=== PATIENT | female | born 1940 | race Caucasian/White ===

== ENCOUNTER 2018-03-09 14:00 | Emergency (ER) | payer MEDICARE, OTHER ==
[~2018-03-09] VITALS: Ht 157.5 cm; Wt 85.0 kg
[~2018-03-09 14:00] MED LIST: ARIC5TAB OR; ASPI81 PO; ATEN-100 PO; COZA100T PO; DIAZ10TA PO; DILT180C56 PO; FLON0.053; FLUO0.012 OT; FURO40TA OR; HYDR-2768 PO; LORT5TAB PO; POTA-243 PO; PRIL20TA2 PO; RITA20TA PO; SUMA50TA2 OR; TIZA4CAP PO; TRAM50 PO; VALA500 PO; VENTAER INH; XANA1TAB6 PO
--- NOTE | 2018-03-09 14:41 | PD ---
HPI Chief Complaint: Jacobo act Time Seen by Provider: 14:38 Travel History International Travel<30 days: No Contact w/Intl Traveler<30days: No Traveled to known affect area: No History of Present Illness HPI 77-year-old female patient went to her pain management nurse for pain related issues. Apparently she was told that she would not get any opiates which made the patient upset and states she cannot live with this pain like this anymore and would rather . Based on this patient was Jacobo acted. She was brought in by EMS. Currently patient is denying any real suicidal thoughts. Vital signs are stable. Patient denies drinking alcohol or using drugs. Her chronic pain is lower back. No new injuries. PFSH Past Medical History Narrative Medical List of her past medical, surgical, social and family history is reviewed from the nursing note. Arthritis: Yes (HX OA ) Asthma: No Blood Disorders: No Anxiety: Yes Depression: Yes Heart Rhythm Problems: Yes Cancer: Yes (BCC,) Cardiovascular Problems: Yes (COPD/ASTHMA) COPD: No Diabetes: No Diminished Hearing: No Endocrine: No Gastrointestinal Disorders: Yes (REFLUX) Glaucoma: No Genitourinary: No Hepatitis: No Hiatal Hernia: No Hypertension: Yes Immune Disorder: Yes (SARCOIDOSIS) Implanted Vascular Access Dvce: No Musculoskeletal: Yes (ARTHRITIS,BACK PROBLEMS) Neurologic: Yes (FALLS) Psychiatric: Yes Reproductive: No Respiratory: Yes (SOB) Immunizations Current: No Migraines: Yes Sleep Apnea: No Thyroid Disease: No : 2 Para: 2 Past Surgical History Abdominal Surgery: Yes (FIDELINA, TUMMY TUCK WHICH BECAME INFECTED) Body Medical Devices: SCREW IN RIGHT POINTER FINGER Cardiac Surgery: No Ear Surgery: No Endocrine Surgery: No Eye Surgery: Yes (CATARACT SX BILAT) Genitourinary Surgery: No Gynecologic Surgery: Yes (HYSTERECTOMY PARTIAL) Hysterectomy: Yes Joint Replacement: No Neurologic Surgery: No Oral Surgery: No Pacemaker: No Thoracic Surgery: Yes ("SCRAPED LUNG FOR SARCODOSIS") Tonsillectomy: Yes Other Surgery: Yes (07/24 TUMMY TUCK IN [facility], [place]PA[place] [facility] [place] Social History Alcohol Use: No Tobacco Use: No Substance Use: No Allergies-Medications (Allergen,Severity, Reaction): Coded Allergies: fexofenadine (Unverified Allergy, Severe, LIP SWELLING, 03/11/18) Comments List of her allergies reviewed from the nursing note. Reported Meds & Prescriptions Reported Meds & Active Scripts Active Walker with Front Wheels (Device) 1 Mis Mis Ea .XX DIRECTED Reported Omeprazole 20 Mg Tab 20 Mg PO DAILY Prednisone 2.5 Mg Tab 2.5 Mg PO DAILY Ritalin IR (Methylphenidate HCl) 20 Mg Tab 20 Mg PO DAILY Cardizem CD 24 HR (Diltiazem CD 24 HR) 240 Mg Caper 240 Mg PO DAILY Ventolin Hfa 18 GM Inh (Albuterol Sulfate) 90 Mcg/Act Aer 2 Puff INH Q4-6H PRN Narrative Medication List of her home medications reviewed from the nursing note. Review of Systems Except as stated in HPI: all other systems reviewed are Neg Physical Exam Narrative GENERAL: Awake, alert, anxious, no obvious distress SKIN: Focused skin assessment warm/dry. HEAD: Atraumatic. Normocephalic. EYES: Pupils equal and round. No scleral icterus. No injection or drainage. ENT: No nasal bleeding or discharge. Mucous membranes pink and moist. NECK: Trachea midline. No JVD. CARDIOVASCULAR: Regular rate and rhythm. No murmur appreciated. RESPIRATORY: No accessory muscle use. Clear to auscultation. Breath sounds equal bilaterally. GASTROINTESTINAL: Abdomen soft, non-tender, nondistended. Hepatic and splenic margins not palpable. MUSCULOSKELETAL: No obvious deformities. No clubbing. No cyanosis. No edema. NEUROLOGICAL: Awake and alert. No obvious cranial nerve deficits. Motor grossly within normal limits. Normal speech. PSYCHIATRIC: Appropriate mood and affect; insight and judgment normal. Data Data Last Documented VS Vital Signs Date Time Temp Pulse Resp B/P (MAP) Pulse Ox O2 Delivery O2 Flow Rate FiO2 03/10/18 10:08 Orders Orders Complete Blood Count With Diff (03/09/18 14:48) Comprehensive Metabolic Panel (03/09/18 14:48) Thyroid Stimulating Hormone (03/09/18 14:48) Psych Screen (03/09/18 14:48) Drug Screen, Random Urine (03/09/18 14:48) Prothrombin Time / Inr (Pt) (03/09/18 15:12) Urinalysis - C+S If Indicated (03/09/18 15:51) Diet Regular Basic (03/09/18 Dinner) Acetaminophen (Tylenol) (03/09/18 19:15) Tramadol (Ultram) (03/09/18 21:45) Diphenhydramine (Benadryl) (03/09/18 21:45) Diet Regular Basic (03/10/18 Breakfast) Ed Discharge Order (03/10/18 09:50) Labs Laboratory Tests Test 03/09/18 14:00 03/09/18 15:09 03/09/18 15:14 Urine Color YELLOW Urine Turbidity CLEAR Urine pH 6.5 Urine Specific [place] 1.015 Urine Protein TRACE mg/dL Urine Glucose (UA) NEG mg/dL Urine Ketones NEG mg/dL Urine Occult Blood NEG Urine Nitrite NEG Urine Bilirubin NEG Urine Urobilinogen 0.2 MG/DL Urine Leukocyte Esterase NEG Urine RBC LESS THAN 1 /hpf Urine WBC LESS THAN 1 /hpf Urine Squamous Epithelial Cells 4 /hpf Urine Hyaline Casts 2 /lpf Urine Mucus FEW /lpf Microscopic Urinalysis Comment CULT NOT INDICATED Urine Opiates Screen NEG Urine Barbiturates Screen NEG Urine Amphetamines Screen NEG Urine Benzodiazepines Screen POS Urine Cocaine Screen NEG Urine Cannabinoids Screen NEG White Blood Count 7.9 TH/MM3 Red Blood Count 4.23 MIL/MM3 Hemoglobin 10.2 GM/DL Hematocrit 32.3 % Mean Corpuscular Volume 76.5 FL Mean Corpuscular Hemoglobin 24.0 PG Mean Corpuscular Hemoglobin Concent 31.4 % Red Cell Distribution Width 17.5 % Platelet Count 421 TH/MM3 Mean Platelet Volume 7.8 FL Neutrophils (%) (Auto) 53.6 % Lymphocytes (%) (Auto) 31.5 % Monocytes (%) (Auto) 9.5 % Eosinophils (%) (Auto) 4.4 % Basophils (%) (Auto) 1.0 % Neutrophils # (Auto) 4.2 TH/MM3 Lymphocytes # (Auto) 2.5 TH/MM3 Monocytes # (Auto) 0.7 TH/MM3 Eosinophils # (Auto) 0.3 TH/MM3 Basophils # (Auto) 0.1 TH/MM3 CBC Comment DIFF FINAL Differential Comment Blood Urea Nitrogen 13 MG/DL Creatinine 0.99 MG/DL Random Glucose 106 MG/DL Total Protein 7.0 GM/DL Albumin 3.3 GM/DL Calcium Level 8.9 MG/DL Alkaline Phosphatase 125 U/L Aspartate Amino Transf (AST/SGOT) 17 U/L Alanine Aminotransferase (ALT/SGPT) 18 U/L Total Bilirubin 0.4 MG/DL Sodium Level 140 MEQ/L Potassium Level 3.6 MEQ/L Chloride Level 102 MEQ/L Carbon Dioxide Level 29.6 MEQ/L Anion Gap 8 MEQ/L Estimat Glomerular Filtration Rate 54 ML/MIN Thyroid Stimulating Hormone 3rd Gen 1.150 uIU/ML Prothrombin Time 14.3 SEC Prothromb Time International Ratio 1.4 RATIO MDM Medical Decision Making Medical Screen Exam Complete: Yes Emergency Medical Condition: Yes Medical Record Reviewed: Yes Differential Diagnosis Anxiety, depression, anger outburst Narrative Course 4:31 PM blood test results are back and patient is medically cleared. Awaiting for psych screen Procedures EKG Prior to Arrival: Barry Vilchis MD March 09, 2018 14:41
[2018-03-09 14:43] VITALS: BP 193/87; PULSE 78; RESP 14; TEMP 99; O2SAT 97
[2018-03-09 15:41] LABS: AUTOMATED NEUTROPHIL # 4.2 TH/MM3 (1.8-7.7); BASOPHIL # 0.1 TH/MM3 (0-0.2); EOSINOPHIL # 0.3 TH/MM3 (0-0.4); EOSINOPHIL % 4.4 % (0.0-4.0); HEMATOCRIT 32.3 % (35.0-46.0); HEMOGLOBIN 10.2 GM/DL (11.6-15.3); LYMPH % 31.5 % (9.0-44.0); LYMPHOCYTE # 2.5 TH/MM3 (1.0-4.8); MEAN CELL VOLUME 76.5 FL (80.0-100.0); MEAN CORPUSCULAR HGB CONC 31.4 % (32.0-36.0); MEAN PLATELET VOLUME 7.8 FL (7.0-11.0); MONO % 9.5 % (0.0-8.0); MONOCYTE # 0.7 TH/MM3 (0-0.9); NEUT % 53.6 % (16.0-70.0); PLATELET COUNT 421 TH/MM3 (150-450); RED BLOOD COUNT 4.23 MIL/MM3 (4.00-5.30); RED CELL DISTRIBUTION WIDTH 17.5 % (11.6-17.2); WHITE BLOOD COUNT 7.9 TH/MM3 (4.0-11.0)
[2018-03-09 15:47] LABS: ALBUMIN 3.3 GM/DL (3.4-5.0); ALT (GPT) 18 U/L (10-53); AST (GOT) 17 U/L (15-37); BICARBONATE 29.6 MEQ/L (21.0-32.0); BLOOD UREA NITROGEN 13 MG/DL (7-18); CALCIUM 8.9 MG/DL (8.5-10.1); CHLORIDE 102 MEQ/L (98-107); CREATININE 0.99 MG/DL (0.50-1.00); GLOMERULAR FILTRATION RATE 54 ML/MIN (>89); GLUCOSE,RANDOM 106 MG/DL (74-106); SODIUM (NA) 140 MEQ/L (136-145)
[2018-03-09 15:57] LABS: ALKALINE PHOSPHATASE 125 U/L (45-117); TOTAL BILIRUBIN ADULT 0.4 MG/DL (0.2-1.0)
[2018-03-09 16:18] LABS: INTERNATIONAL NORMALIZED RATIO 1.4 RATIO; PROTHROMBIN TIME - PATIENT 14.3 SEC (9.8-11.6)
[2018-03-09 16:22] LABS: BILIRUBIN, URINE NEG (NEG); BLOOD, URINE NEG (NEG); GLUCOSE,URINE NEG (NEG); KETONE, URINE NEG (NEG); NITRITE,URINE NEG (NEG); PH, URINE 6.5 (5.0-8.5); URINE COLOR YELLOW (YELLW/STRAW); URINE LEUKOCYTE ESTERASE NEG (NEG)
[2018-03-09 16:23] LABS: HYALINE CAST, URINE 2 /lpf (RARE); MUCUS URINE FEW /lpf (OCC); SQUAMOUS EPITHELIAL CELL URINE 4 /hpf (0-5)
[2018-03-09] MEDS ORDERED: VENTAER INH ×2 (17:16→20:52)
[2018-03-09] MEDS ORDERED: TRAM50TA PO (17:16)
[2018-03-09] MEDS ORDERED: LACT10SO PO (17:16)
[2018-03-09] MEDS ORDERED: ACETAMINOPHEN 325 MG TAB PO ONE (19:15)
[2018-03-09] MEDS ORDERED: PRED2.5T PO (20:55)
[2018-03-09] MEDS ORDERED: RITA20TA PO (20:55)
[2018-03-09] MEDS ORDERED: FURO1TAB60 PO (20:55)
[2018-03-09] MEDS ORDERED: CARD240C6 PO (20:55)
[2018-03-09] MEDS ORDERED: AMBI10TA PO (20:55)
[2018-03-09] MEDS ORDERED: POTA1TAB4 PO (20:58)
[2018-03-09] MEDS ORDERED: OMEP20TA93 PO (20:58)
[2018-03-09] MEDS ORDERED: diphenhydrAMINE HCL 50 MG CAP PO ONE (21:45)
[2018-03-09] MEDS ORDERED: traMADol HCL 50 MG TAB PO ONE (21:45)
[2018-03-09 22:13] VITALS: BP 193/88; PULSE 94; RESP 20; TEMP 98.1; O2SAT 99
[2018-03-10 04:49] VITALS: BP 154/70; PULSE 91; RESP 18; O2SAT 96
--- NOTE | 2018-03-10 09:47 | PD ---
Physical Exam Date Seen by Provider: March 10, 2018 Time Seen by Provider: 09:46 Narrative 77-year-old female patient previously medically clear for psychiatric evaluation for suicidal ideation, has been seen and evaluated by psychiatric staff and deemed psychiatrically stable for discharge at this time. Patient remains medically stable for discharge. Follow-up will be based on psychiatric note. Data Data Last Documented VS Vital Signs Date Time Temp Pulse Resp B/P (MAP) Pulse Ox O2 Delivery O2 Flow Rate FiO2 03/10/18 04:49 91 18 154/70 (98) 96 Room Air 03/09/18 22:13 98.1 Orders Orders Complete Blood Count With Diff (03/09/18 14:48) Comprehensive Metabolic Panel (03/09/18 14:48) Thyroid Stimulating Hormone (03/09/18 14:48) Psych Screen (03/09/18 14:48) Drug Screen, Random Urine (03/09/18 14:48) Prothrombin Time / Inr (Pt) (03/09/18 15:12) Urinalysis - C+S If Indicated (03/09/18 15:51) Diet Regular Basic (03/09/18 Dinner) Acetaminophen (Tylenol) (03/09/18 19:15) Tramadol (Ultram) (03/09/18 21:45) Diphenhydramine (Benadryl) (03/09/18 21:45) Diet Regular Basic (03/10/18 Breakfast) Labs Laboratory Tests Test 03/09/18 14:00 03/09/18 15:09 03/09/18 15:14 Urine Color YELLOW Urine Turbidity CLEAR Urine pH 6.5 Urine Specific [place] 1.015 Urine Protein TRACE mg/dL Urine Glucose (UA) NEG mg/dL Urine Ketones NEG mg/dL Urine Occult Blood NEG Urine Nitrite NEG Urine Bilirubin NEG Urine Urobilinogen 0.2 MG/DL Urine Leukocyte Esterase NEG Urine RBC LESS THAN 1 /hpf Urine WBC LESS THAN 1 /hpf Urine Squamous Epithelial Cells 4 /hpf Urine Hyaline Casts 2 /lpf Urine Mucus FEW /lpf Microscopic Urinalysis Comment CULT NOT INDICATED Urine Opiates Screen NEG Urine Barbiturates Screen NEG Urine Amphetamines Screen NEG Urine Benzodiazepines Screen POS Urine Cocaine Screen NEG Urine Cannabinoids Screen NEG White Blood Count 7.9 TH/MM3 Red Blood Count 4.23 MIL/MM3 Hemoglobin 10.2 GM/DL Hematocrit 32.3 % Mean Corpuscular Volume 76.5 FL Mean Corpuscular Hemoglobin 24.0 PG Mean Corpuscular Hemoglobin Concent 31.4 % Red Cell Distribution Width 17.5 % Platelet Count 421 TH/MM3 Mean Platelet Volume 7.8 FL Neutrophils (%) (Auto) 53.6 % Lymphocytes (%) (Auto) 31.5 % Monocytes (%) (Auto) 9.5 % Eosinophils (%) (Auto) 4.4 % Basophils (%) (Auto) 1.0 % Neutrophils # (Auto) 4.2 TH/MM3 Lymphocytes # (Auto) 2.5 TH/MM3 Monocytes # (Auto) 0.7 TH/MM3 Eosinophils # (Auto) 0.3 TH/MM3 Basophils # (Auto) 0.1 TH/MM3 CBC Comment DIFF FINAL Differential Comment Blood Urea Nitrogen 13 MG/DL Creatinine 0.99 MG/DL Random Glucose 106 MG/DL Total Protein 7.0 GM/DL Albumin 3.3 GM/DL Calcium Level 8.9 MG/DL Alkaline Phosphatase 125 U/L Aspartate Amino Transf (AST/SGOT) 17 U/L Alanine Aminotransferase (ALT/SGPT) 18 U/L Total Bilirubin 0.4 MG/DL Sodium Level 140 MEQ/L Potassium Level 3.6 MEQ/L Chloride Level 102 MEQ/L Carbon Dioxide Level 29.6 MEQ/L Anion Gap 8 MEQ/L Estimat Glomerular Filtration Rate 54 ML/MIN Thyroid Stimulating Hormone 3rd Gen 1.150 uIU/ML Prothrombin Time 14.3 SEC Prothromb Time International Ratio 1.4 RATIO [facility] Medical Record Reviewed: Yes Supervised Visit with CARLEY: Yes Differential Diagnosis 77-year-old female patient previously medically clear for psychiatric evaluation for suicidal ideation, has been seen and evaluated by psychiatric staff and deemed psychiatrically stable for discharge at this time. Patient remains medically stable for discharge. Follow-up will be based on psychiatric note. Diagnosis Primary Impression: Adjustment disorder with depressed mood Patient Instructions: General Instructions Departure Forms: Tests/Procedures Disposition: DISCHARGE HOME Condition: Stable Ochoa Damon March 10, 2018 09:47
--- NOTE | 2018-03-10 12:34 | PD.PSY.CON ---
Provisional Diagnosis Admission Date [place] I. Adjustment disorder with depressed mood, history of depression and anxiety [place] II. Deferred [place] III. 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 Apparently she was told that she would not get any opiates which made the patient upset and states she cannot live with this pain like this anymore and would rather . Based on this patient was Jacobo acted. She was brought in by EMS. On psychiatric evaluation today the patient denies symptomatology of depression. She said that she never expressed suicidal ideation. She said that she was on pain and in the context of pain she said that she wanted to , but not to kill herself. She now is denies pain, denies distress, denies suicidal and was ideation, denies visual and auditory hallucinations. She is oriented 3. Past Family Social History Coded Allergies: fexofenadine (Unverified Allergy, Severe, LIP SWELLING, 03/11/18) Reported Medications Potassium Chloride ER (K-Tab) 20 Meq Tab, 20 MEQ PO DAILY for Electrolyte Replacement, #30 TAB 0 Refills 03/09/18 Omeprazole (Omeprazole) 20 Mg Tab, 20 MG PO DAILY, #30 TAB 0 Refills 03/09/18 Prednisone (Prednisone) 2.5 Mg Tab, 2.5 MG PO DAILY, TAB 0 Refills 03/09/18 Methylphenidate IR (Ritalin IR) 20 Mg Tab, 20 MG PO DAILY, #30 TAB 0 Refills 03/09/18 Furosemide (Lasix) 40 Mg Tab, 40 MG PO DAILY, #30 TAB 0 Refills 03/09/18 Diltiazem CD 24 HR (Cardizem CD 24 HR) 240 Mg Caper, 240 MG PO DAILY, #30 CAP 0 Refills 03/09/18 Zolpidem (Ambien) 10 Mg Tab, 10 MG PO HS Y for INSOMNIA, TAB 0 Refills 03/09/18 Lactulose Liq (Lactulose Liq) 10 Gm/15 Ml Soln, 30 ML PO Q6H, ML 0 Refills 03/09/18 Albuterol 18 GM Inh (Ventolin Hfa 18 GM Inh) 90 Mcg/Act Aer, 2 PUFF INH Q4-6H Y for SHORTNESS OF BREATH, #1 INHALER 0 Refills 03/09/18 Tramadol (Tramadol) 50 Mg Tab, 50-100 MG PO TID Y for PAIN, TAB 0 Refills 03/09/18 Discontinued Reported Medications Albuterol Sulfate (Ventolin Hfa) 18 Gm Aero, 2 PUFF INH Q4HPRN, #1 * SHAKE WELL BEFORE USE * 03/09/18 Family Psych History No family psychiatric he Social History Patient was born and raised in [place], she lives in [place] by herself, 2 kids, , unemployed, supported by Social Security Physical Exam Vital Signs Vital Signs Date Time Temp Pulse Resp B/P (MAP) Pulse Ox O2 Delivery O2 Flow Rate FiO2 03/10/18 10:08 03/10/18 04:49 91 18 96 Room Air 03/09/18 22:13 98.1 Lab Results Test 03/09/18 14:00 03/09/18 15:09 03/09/18 15:14 Urine Color YELLOW Urine Turbidity CLEAR Urine pH 6.5 Urine Specific [place] 1.015 Urine Protein TRACE mg/dL Urine Glucose (UA) NEG mg/dL Urine Ketones NEG mg/dL Urine Occult Blood NEG Urine Nitrite NEG Urine Bilirubin NEG Urine Urobilinogen 0.2 MG/DL Urine Leukocyte Esterase NEG Urine RBC LESS THAN 1 /hpf Urine WBC LESS THAN 1 /hpf Urine Squamous Epithelial Cells 4 /hpf Urine Hyaline Casts 2 /lpf Urine Mucus FEW /lpf Microscopic Urinalysis Comment CULT NOT INDICATED Urine Opiates Screen NEG Urine Barbiturates Screen NEG Urine Amphetamines Screen NEG Urine Benzodiazepines Screen POS Urine Cocaine Screen NEG Urine Cannabinoids Screen NEG White Blood Count 7.9 TH/MM3 Red Blood Count 4.23 MIL/MM3 Hemoglobin 10.2 GM/DL Hematocrit 32.3 % Mean Corpuscular Volume 76.5 FL Mean Corpuscular Hemoglobin 24.0 PG Mean Corpuscular Hemoglobin Concent 31.4 % Red Cell Distribution Width 17.5 % Platelet Count 421 TH/MM3 Mean Platelet Volume 7.8 FL Neutrophils (%) (Auto) 53.6 % Lymphocytes (%) (Auto) 31.5 % Monocytes (%) (Auto) 9.5 % Eosinophils (%) (Auto) 4.4 % Basophils (%) (Auto) 1.0 % Neutrophils # (Auto) 4.2 TH/MM3 Lymphocytes # (Auto) 2.5 TH/MM3 Monocytes # (Auto) 0.7 TH/MM3 Eosinophils # (Auto) 0.3 TH/MM3 Basophils # (Auto) 0.1 TH/MM3 CBC Comment DIFF FINAL Differential Comment Blood Urea Nitrogen 13 MG/DL Creatinine 0.99 MG/DL Random Glucose 106 MG/DL Total Protein 7.0 GM/DL Albumin 3.3 GM/DL Calcium Level 8.9 MG/DL Alkaline Phosphatase 125 U/L Aspartate Amino Transf (AST/SGOT) 17 U/L Alanine Aminotransferase (ALT/SGPT) 18 U/L Total Bilirubin 0.4 MG/DL Sodium Level 140 MEQ/L Potassium Level 3.6 MEQ/L Chloride Level 102 MEQ/L Carbon Dioxide Level 29.6 MEQ/L Anion Gap 8 MEQ/L Estimat Glomerular Filtration Rate 54 ML/MIN Thyroid Stimulating Hormone 3rd Gen 1.150 uIU/ML Prothrombin Time 14.3 SEC Prothromb Time International Ratio 1.4 RATIO Mental Status Examination Appearance: Appropriate Consciousness: Alert Orientation: x4 Motor Activity: Normal gait Speech: Unremarkable Language: Adequate Fund of Knowledge: Adequate Attention and Concentration: Adequate Memory: Unremarkable Mood: Appropriate Affect: Appropriate Thought Process & Associations: Intact Thought Content: Appropriate Hallucination Type: None Delusion Type: None Suicidal Ideation: No Suicidal Plan: No Suicidal Intention: No Homicidal Ideation: No Homicidal Plan: No Homicidal Intention: No Insight: Adequate Judgment: Adequate Assessment & Plan Problem List: (1) Adjustment disorder with depressed mood ICD Codes: F43.21 - Adjustment disorder with depressed mood Assessment & Plan: The patient does not meet criteria for involuntary psychiatric admission at this moment. Patient denies symptoms of depression, anxiety, anastacia or psychosis. No SI, no HI. Assessment & Plan Estimated LOS: Grabiel Enriquez MD March 10, 2018 12:34
== END 2018-03-10 10:15 | disposition home or self-care (01) ==
LOC: NEPD 14:00 → NEPJ 03-10 10:15
DX: F43.21 Adjustment disorder with depressed mood (principal); M54.5 Low back pain; G89.29 Other chronic pain; K21.9 Gastro-esophageal reflux disease without esophagitis; J44.9 Chronic obstructive pulmonary disease, unspecified; Z79.899 Other long term (current) drug therapy
CPT/HCPCS: 80053; 80307; 81001; 84443; 85025; 85610; 99284; Q0163

== ENCOUNTER 2018-03-11 11:53 | Observation (INO) | payer MEDICARE, OTHER ==
[~2018-03-11] VITALS: Ht 157.5 cm; Wt 82.0 kg
[~2018-03-11 11:53] MED LIST changes: +AMBI10TA PO; -ARIC5TAB OR; -ASPI81 PO; -ATEN-100 PO; +CARD240C6 PO; -COZA100T PO; -DIAZ10TA PO; -DILT180C56 PO; -FLON0.053; -FLUO0.012 OT; +FURO1TAB60 PO; -FURO40TA OR; -HYDR-2768 PO; +LACT10SO PO; -LORT5TAB PO; +OMEP20TA93 PO; -POTA-243 PO; +POTA1TAB4 PO; +PRED2.5T PO; -PRIL20TA2 PO; -SUMA50TA2 OR; -TIZA4CAP PO; -TRAM50 PO; +TRAM50TA PO; -VALA500 PO; -XANA1TAB6 PO
[2018-03-11 12:13] VITALS: BP 119/60; PULSE 78; RESP 15; TEMP 97.7; O2SAT 98
[2018-03-11] MEDS ORDERED: SODIUM CHLOR 0.9% 1000 ML INJ 1,000 ML IV SCH (12:45)
[2018-03-11 12:48] VITALS: O2SAT 98
--- NOTE | 2018-03-11 13:02 | PD ---
HPI Chief Complaint: Fall Time Seen by Provider: 12:20 Travel History International Travel<30 days: No Contact w/Intl Traveler<30days: No Traveled to known affect area: No History of Present Illness HPI 77-year-old female was brought in by EMS after a fall. Patient states that a dog pushed on her and she fell. Patient denies loss of consciousness. Patient denies any headache or neck pain. Patient denies any chest pain or shortness of breath. Patient denies abdominal pain. Patient denies any focal weakness or numbness of extremity. EMS was called. Initial systolic blood pressures in the 80s. Patient was given IV fluid normal saline solution and transported to ED for evaluation. Patient denies any complaint now. Patient has history of osteoarthritis, anxiety, depression, sarcoidosis, migraine headache. Patient was on diazepam and Lortab and Xanax until recently when patient is on Xanax now. PFSH Past Medical History Hx Anticoagulant Therapy: Yes (warfarin) Arthritis: Yes (HX OA ) Asthma: No Blood Disorders: No Anxiety: Yes Depression: Yes Heart Rhythm Problems: Yes Cancer: Yes (BCC,) Cardiovascular Problems: Yes (COPD/ASTHMA) COPD: No Cerebrovascular Accident: Yes Diabetes: No Diminished Hearing: No Endocrine: No Gastrointestinal Disorders: Yes (REFLUX) Glaucoma: No Genitourinary: No Hepatitis: No Hiatal Hernia: No Hypertension: Yes Immune Disorder: Yes (SARCOIDOSIS) Implanted Vascular Access Dvce: No Musculoskeletal: Yes (ARTHRITIS,BACK PROBLEMS) Neurologic: Yes (FALLS) Psychiatric: Yes Reproductive: No Respiratory: Yes (PE) Immunizations Current: No Migraines: Yes Sleep Apnea: No Thyroid Disease: No : 2 Para: 2 Past Surgical History Abdominal Surgery: Yes (FIDELINA, TUMMY TUCK WHICH BECAME INFECTED) Body Medical Devices: SCREW IN RIGHT POINTER FINGER Cardiac Surgery: No Cholecystectomy: Yes Ear Surgery: No Endocrine Surgery: No Eye Surgery: Yes (CATARACT SX BILAT) Genitourinary Surgery: Yes (bladder sling) Gynecologic Surgery: Yes (HYSTERECTOMY PARTIAL) Hysterectomy: Yes Joint Replacement: No Neurologic Surgery: No Oral Surgery: No Pacemaker: No Thoracic Surgery: Yes ("SCRAPED LUNG FOR SARCODOSIS") Tonsillectomy: Yes Other Surgery: Yes (07/24 TUMMY TUCK IN [facility], REPAIRED AT [facility] DR MALHOTRA) Social History Alcohol Use: No Tobacco Use: No Substance Use: No Allergies-Medications (Allergen,Severity, Reaction): Coded Allergies: fexofenadine (Unverified Allergy, Severe, LIP SWELLING, 03/11/18) Reported Meds & Prescriptions Reported Meds & Active Scripts Active Reported K-Tab (Potassium Chloride) 20 Meq Tab 20 Meq PO DAILY Omeprazole 20 Mg Tab 20 Mg PO DAILY Prednisone 2.5 Mg Tab 2.5 Mg PO DAILY Ritalin IR (Methylphenidate HCl) 20 Mg Tab 20 Mg PO DAILY Lasix (Furosemide) 40 Mg Tab 40 Mg PO DAILY Cardizem CD 24 HR (Diltiazem CD 24 HR) 240 Mg Caper 240 Mg PO DAILY Ambien (Zolpidem Tartrate) 10 Mg Tab 10 Mg PO HS PRN Lactulose Liq (Lactulose) 10 Gm/15 Ml Soln 30 Ml PO Q6H Ventolin Hfa 18 GM Inh (Albuterol Sulfate) 90 Mcg/Act Aer 2 Puff INH Q4-6H PRN Tramadol (Tramadol HCl) 50 Mg Tab 50-100 Mg PO TID PRN Review of Systems General / Constitutional: No: Fever Eyes: No: Visual changes HENT: No: Headaches Cardiovascular: No: Chest Pain or Discomfort Respiratory: No: Shortness of Breath Gastrointestinal: No: Abdominal Pain Genitourinary: No: Dysuria Musculoskeletal: No: Pain Skin: No Rash Neurologic: No: Weakness Psychiatric: No: Depression Endocrine: No: Polydipsia Hematologic/Lymphatic: No: Easy Bruising Physical Exam Narrative GENERAL: Well-nourished, well-developed patient. SKIN: Focused skin assessment warm/dry. HEAD: Normocephalic. EYES: No scleral icterus. No injection or drainage. Pupils pinpoint. NECK: Supple, trachea midline. No JVD or lymphadenopathy. CARDIOVASCULAR: Regular rate and rhythm without murmurs, gallops, or rubs. RESPIRATORY: Breath sounds equal bilaterally. No accessory muscle use. GASTROINTESTINAL: Abdomen soft, non-tender, nondistended. MUSCULOSKELETAL: No cyanosis, or edema. BACK: Nontender without obvious deformity. No CVA tenderness. Neurologic exam: Patient is lethargic however answer questions appropriately. Patient moves all extremity well. No obvious focal neurological deficit. Data Data Last Documented VS Vital Signs Date Time Temp Pulse Resp B/P (MAP) Pulse Ox O2 Delivery O2 Flow Rate FiO2 03/11/18 12:48 98 03/11/18 12:13 97.7 78 15 119/60 (79) Orders Orders Electrocardiogram (03/11/18 12:32) Complete Blood Count With Diff (03/11/18 12:32) Comprehensive Metabolic Panel (03/11/18 12:32) Creatine Kinase (Cpk) (03/11/18 12:32) Troponin I (03/11/18 12:32) B-Type Natriuretic Peptide (03/11/18 12:32) Prothrombin Time / Inr (Pt) (03/11/18 12:32) Act Partial Throm Time (Ptt) (03/11/18 12:32) Urinalysis - C+S If Indicated (03/11/18 12:32) Thyroid Stimulating Hormone (03/11/18 12:32) Chest, Single Ap (03/11/18 12:32) Ct Brain W/O Iv Contrast(Rout) (03/11/18 12:32) Pelvis, Ap Only (Routine) (03/11/18 12:32) Iv Access Insert/Monitor (03/11/18 12:32) Ecg Monitoring (03/11/18 12:32) Oximetry (03/11/18 12:32) Drug Screen, Random Urine (03/11/18 12:32) Alcohol (Ethanol) (03/11/18 12:32) Sodium Chlor 0.9% 1000 Ml Inj (Ns 1000 M (03/11/18 12:45) Labs Laboratory Tests Test 03/11/18 13:00 03/11/18 14:15 White Blood Count 12.5 TH/MM3 Red Blood Count 4.07 MIL/MM3 Hemoglobin 9.7 GM/DL Hematocrit 31.7 % Mean Corpuscular Volume 77.9 FL Mean Corpuscular Hemoglobin 23.9 PG Mean Corpuscular Hemoglobin Concent 30.7 % Red Cell Distribution Width 17.7 % Platelet Count 394 TH/MM3 Mean Platelet Volume 8.2 FL Neutrophils (%) (Auto) 77.8 % Lymphocytes (%) (Auto) 11.1 % Monocytes (%) (Auto) 9.7 % Eosinophils (%) (Auto) 0.8 % Basophils (%) (Auto) 0.6 % Neutrophils # (Auto) 9.8 TH/MM3 Lymphocytes # (Auto) 1.4 TH/MM3 Monocytes # (Auto) 1.2 TH/MM3 Eosinophils # (Auto) 0.1 TH/MM3 Basophils # (Auto) 0.1 TH/MM3 CBC Comment DIFF FINAL Differential Comment Prothrombin Time 15.8 SEC Prothromb Time International Ratio 1.6 RATIO Activated Partial Thromboplast Time 24.6 SEC Blood Urea Nitrogen 27 MG/DL Creatinine 2.13 MG/DL Random Glucose 104 MG/DL Total Protein 6.6 GM/DL Albumin 3.3 GM/DL Calcium Level 9.3 MG/DL Alkaline Phosphatase 115 U/L Aspartate Amino Transf (AST/SGOT) 16 U/L Alanine Aminotransferase (ALT/SGPT) 18 U/L Total Bilirubin 0.7 MG/DL Sodium Level 138 MEQ/L Potassium Level 3.9 MEQ/L Chloride Level 103 MEQ/L Carbon Dioxide Level 21.6 MEQ/L Anion Gap 13 MEQ/L Estimat Glomerular Filtration Rate 22 ML/MIN Total Creatine Kinase 53 U/L Troponin I LESS THAN 0.02 NG/ML B-Type Natriuretic Peptide 56 PG/ML Thyroid Stimulating Hormone 3rd Gen 5.270 uIU/ML Ethyl Alcohol Level LESS THAN 3 MG/DL Urine Color YELLOW Urine Turbidity HAZY Urine pH 5.5 Urine Specific [place] 1.014 Urine Protein TRACE mg/dL Urine Glucose (UA) NEG mg/dL Urine Ketones NEG mg/dL Urine Occult Blood NEG Urine Nitrite NEG Urine Bilirubin NEG Urine Urobilinogen LESS THAN 2.0 MG/DL Urine Leukocyte Esterase LARGE Urine WBC 5 /hpf Urine Squamous Epithelial Cells 7 /hpf Urine Hyaline Casts 20 /lpf Urine Mucus FEW /lpf Microscopic Urinalysis Comment CATH-CULT NOT IND Urine Opiates Screen NEG Urine Barbiturates Screen NEG Urine Amphetamines Screen NEG Urine Benzodiazepines Screen POS Urine Cocaine Screen NEG Urine Cannabinoids Screen NEG [facility] Medical Decision Making Medical Screen Exam Complete: Yes Emergency Medical Condition: Yes Interpretation(s) Last Impressions Pelvis X-Ray 03/11/18 123 Signed Impressions: CONCLUSION: No definite fracture is seen. Head CT 03/11/18 123 Signed Impressions: CONCLUSION: 1. Chronic changes with moderately severe periventricular and deep white matte r tracts small vessel ischemic demyelination. 2. Chronic sinusitis in the right sphenoid. 3. Nothing acute. Chest X-Ray 03/11/18 1232 Signed Impressions: CONCLUSION: Cardiomegaly. Suspected mild atelectasis or consolidation at the inferior right upper lobe. 1623 PM. CBC WBC 12.5. Hemoglobin 9.7 hematocrit 31.7. MCV 77.9. 77 neutrophil. BUN 27. Creatinine 2.13. Cardiac enzymes are normal. BNP 56. TSH 5.27. Urine drug screen positive for benzo. UA negative. Differential Diagnosis Differential diagnosis including vasovagal reaction, head injury, extremity injury, TIA, CVA, electrolyte abnormality, dehydration, sepsis. Narrative Course 77-year-old female with generalized weakness. Patient fell this morning. Normal saline solution 1 25 cc an hour. Diagnosis Primary Impression: Altered mental status Qualified Codes: R41.82 - Altered mental status, unspecified Additional Impressions: Dehydration Acute kidney injury Admitting Information Admitting Physician Requests: Admit Abran Castellanos MD March 11, 2018 13:02
[2018-03-11 13:19] LABS: AUTOMATED NEUTROPHIL # 9.8 TH/MM3 (1.8-7.7); BASOPHIL # 0.1 TH/MM3 (0-0.2); BASOPHIL % 0.6 % (0.0-2.0); EOSINOPHIL # 0.1 TH/MM3 (0-0.4); EOSINOPHIL % 0.8 % (0.0-4.0); HEMATOCRIT 31.7 % (35.0-46.0); HEMOGLOBIN 9.7 GM/DL (11.6-15.3); LYMPH % 11.1 % (9.0-44.0); LYMPHOCYTE # 1.4 TH/MM3 (1.0-4.8); MEAN CELL VOLUME 77.9 FL (80.0-100.0); MEAN CORPUSCULAR HEMOGLOBIN 23.9 PG (27.0-34.0); MEAN CORPUSCULAR HGB CONC 30.7 % (32.0-36.0); MEAN PLATELET VOLUME 8.2 FL (7.0-11.0); MONO % 9.7 % (0.0-8.0); MONOCYTE # 1.2 TH/MM3 (0-0.9); NEUT % 77.8 % (16.0-70.0); PLATELET COUNT 394 TH/MM3 (150-450); RED BLOOD COUNT 4.07 MIL/MM3 (4.00-5.30); RED CELL DISTRIBUTION WIDTH 17.7 % (11.6-17.2); WHITE BLOOD COUNT 12.5 TH/MM3 (4.0-11.0)
[2018-03-11 13:27] LABS: INTERNATIONAL NORMALIZED RATIO 1.6 RATIO; PROTHROMBIN TIME - PATIENT 15.8 SEC (9.8-11.6)
--- NOTE | 2018-03-11 13:41 | RADRPT ---
EXAM DATE: 03/11/2018 1:36 PM EDT AGE/SEX: 77 years / Female INDICATIONS: Shortness of breath after fall. CLINICAL DATA: This is the patient's initial encounter. Patient reports that signs and symptoms have been present for 1 day and indicates a pain score of 0/10. MEDICAL/SURGICAL HISTORY: Asthma. Chronic obstructive pulmonary disease. Appendectomy. COMPARISON: No prior [place] exams available for comparison. FINDINGS: The heart size is enlarged. There is mild increased density at the inferior aspect of the right upper lobe. The lungs are otherwise grossly clear. A significant effusion is not seen. There is some eleva tion of the right hemidiaphragm. CONCLUSION: Cardiomegaly. Suspected mild atelectasis or consolidation at the inferior right upper lobe. Electronically signed by: Marlon Naranjo MD 03/11/2018 1:39 PM EDT
[2018-03-11 13:48] LABS: ALBUMIN 3.3 GM/DL (3.4-5.0); ALT (GPT) 18 U/L (10-53); AST (GOT) 16 U/L (15-37); BICARBONATE 21.6 MEQ/L (21.0-32.0); BLOOD UREA NITROGEN 27 MG/DL (7-18); CALCIUM 9.3 MG/DL (8.5-10.1); CHLORIDE 103 MEQ/L (98-107); CREATININE 2.13 MG/DL (0.50-1.00); GLOMERULAR FILTRATION RATE 22 ML/MIN (>89); GLUCOSE,RANDOM 104 MG/DL (74-106); SODIUM (NA) 138 MEQ/L (136-145)
[2018-03-11 14:00] LABS: ALKALINE PHOSPHATASE 115 U/L (45-117); TOTAL BILIRUBIN ADULT 0.7 MG/DL (0.2-1.0); TOTAL PROTEIN 6.6 GM/DL (6.4-8.2); TROPONIN I LESS THAN 0.02 NG/ML (0.02-0.05)
--- NOTE | 2018-03-11 14:06 | RADRPT ---
EXAM DATE: 03/11/2018 1:36 PM EDT AGE/SEX: 77 years / Female INDICATIONS: Pain in groin area after fall. CLINICAL DATA: This is the patient's initial encounter. Patient reports that signs and symptoms have been present for 1 day and indicates a pain score of 7/10. MEDICAL/SURGICAL HISTORY: Asthma. Chronic obstructive pulmonary disease. Appendectomy. COMPARISON: No prior [facility] exams available for comparison. FINDINGS: Examination of the pelvis demonstrates no evidence of fracture or dislocation. Bony mineralization i s normal. There is no widening of the sacroiliac joints. No foreign body is identified. CONCLUSION: No definite fracture is seen. Electronically signed by: Marlon Naranjo MD 03/11/2018 2:05 PM EDT
[2018-03-11 14:37] LABS: BILIRUBIN, URINE NEG (NEG); BLOOD, URINE NEG (NEG); GLUCOSE,URINE NEG (NEG); HYALINE CAST, URINE 20 /lpf (RARE); KETONE, URINE NEG (NEG); MUCUS URINE FEW /lpf (OCC); NITRITE,URINE NEG (NEG); PH, URINE 5.5 (5.0-8.5); SQUAMOUS EPITHELIAL CELL URINE 7 /hpf (0-5); URINE COLOR YELLOW (YELLW/STRAW); URINE LEUKOCYTE ESTERASE LARGE (NEG)
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
[2018-03-11 16:39] VITALS: BP 132/69; PULSE 14; PULSE 74; RESP 19; O2SAT 98
[2018-03-11] MEDS ORDERED: ONDANSETRON ODT 4 MG TAB PO PRN (17:00)
[2018-03-11] MEDS ORDERED: MAGNESIUM HYDROXIDE SUSP 30 ML CUP PO PRN (17:00)
[2018-03-11] MEDS ORDERED: ACETAMINOPHEN 325 MG TAB PO PRN (17:00)
[2018-03-11] MEDS ORDERED: NALOXONE HCL 0.4 MG/ML AMP IV PUSH PRN (17:00)
[2018-03-11] MEDS ORDERED: SODIUM CHLORIDE 0.9% FLUSH 10 ML FLUSH IV FLUSH PRN (17:00)
--- NOTE | 2018-03-11 17:06 | HHI.HP ---
HPI Service [facility] Hospitalists Primary Care Physician Cheri Layton MD Admission Diagnosis AMS, dehydration and BERNADETTE Travel History International Travel<30 Days: No Contact w/Intl Traveler <30 Da: No Traveled to Known Affected Are: No History of Present Illness This is a 77-year-old female patient with past medical history which includes ADD, anxiety, asthma, CPPD, bipolar, chronic kidney disease stage III, gastroparesis, GERD, hyperlipidemia, hypertension, COPD, migraines and sarcoidosis. Patient presents the emergency department brought in by EMS after a fall. Initial systolic blood pressures in the 80s. Patient awakens to voice. Patient appears confused and seems to be a poor historian. Information gathered from patient and prior charting. Per ER documentation: Patient states that a dog pushed on her and she fell. Patient denies loss of consciousness. Patient denies any headache or neck pain. Patient denies any chest pain or shortness of breath. Patient denies abdominal pain. Patient denies any focal weakness or numbness of extremity. EMS was called. Initial systolic blood pressures in the 80s. Patient was given IV fluid normal saline solution and transported to ED for evaluation. Patient denies any complaint now. Patient has history of osteoarthritis, anxiety, depression, sarcoidosis, migraine headache. Patient was on diazepam and Lortab and Xanax until recently when patient is on Xanax now. Patient denies pain, SOB, chest pain, fevers or chills. Past Family Social History Past Medical History ADD, anxiety, asthma, CPPD, bipolar, chronic kidney disease stage III, gastroparesis, GERD, hyperlipidemia, hypertension Past Surgical History Abdominoplasty, back surgery, percutaneous lung biopsy, bilateral cataract surgery, laparoscopic cholecystectomy, closed treatment of fracture of finger joint, colonoscopy, hemorrhoidectomy, lung scraping, small bowel resection, total abdominal hysterectomy, bladder sling Reported Medications K-Tab (Potassium Chloride) 20 Meq Tab 20 Meq PO DAILY Omeprazole 20 Mg Tab 20 Mg PO DAILY Prednisone 2.5 Mg Tab 2.5 Mg PO DAILY Ritalin IR (Methylphenidate HCl) 20 Mg Tab 20 Mg PO DAILY Lasix (Furosemide) 40 Mg Tab 40 Mg PO DAILY Cardizem CD 24 HR (Diltiazem CD 24 HR) 240 Mg Caper 240 Mg PO DAILY Ambien (Zolpidem Tartrate) 10 Mg Tab 10 Mg PO HS PRN Lactulose Liq (Lactulose) 10 Gm/15 Ml Soln 30 Ml PO Q6H Ventolin Hfa 18 GM Inh (Albuterol Sulfate) 90 Mcg/Act Aer 2 Puff INH Q4-6H PRN Tramadol (Tramadol HCl) 50 Mg Tab 50-100 Mg PO TID PRN Allergies: Coded Allergies: fexofenadine (Unverified Allergy, Severe, LIP SWELLING, 03/11/18) Family History Noncontributory Social History Lives at home with her son Physical Exam Vital Signs Vital Signs Date Time Temp Pulse Resp B/P (MAP) Pulse Ox O2 Delivery O2 Flow Rate FiO2 03/11/18 16:39 74 19 132/69 (90) 98 Nasal Cannula 2.00 03/11/18 12:48 98 03/11/18 12:13 97.7 78 15 119/60 (79) 98 Physical Exam GENERAL: This is a well-nourished, well-developed patient, in no apparent distress. SKIN: No rashes, ecchymoses or lesions. Cool and dry. HEAD: Atraumatic. Normocephalic. No temporal or scalp tenderness. EYES: Extraocular motions intact. No scleral icterus. No injection or drainage. CARDIOVASCULAR: Regular rate and rhythm RESPIRATORY: Clear to auscultation. Breath sounds equal bilaterally. GASTROINTESTINAL: Abdomen soft, generalized tender, mild distention MUSCULOSKELETAL: Extremities without clubbing, cyanosis, or edema. No joint tenderness, effusion, or edema noted. No calf tenderness. Negative Homans sign bilaterally. NEUROLOGICAL: No focal deficits. Motor and sensory grossly within normal limits. Five out of 5 muscle strength in all muscle groups. Normal speech. Laboratory Laboratory Tests Test 03/11/18 13:00 03/11/18 14:15 White Blood Count 12.5 Red Blood Count 4.07 Hemoglobin 9.7 Hematocrit 31.7 Mean Corpuscular Volume 77.9 Mean Corpuscular Hemoglobin 23.9 Mean Corpuscular Hemoglobin Concent 30.7 Red Cell Distribution Width 17.7 Platelet Count 394 Mean Platelet Volume 8.2 Neutrophils (%) (Auto) 77.8 Lymphocytes (%) (Auto) 11.1 Monocytes (%) (Auto) 9.7 Eosinophils (%) (Auto) 0.8 Basophils (%) (Auto) 0.6 Neutrophils # (Auto) 9.8 Lymphocytes # (Auto) 1.4 Monocytes # (Auto) 1.2 Eosinophils # (Auto) 0.1 Basophils # (Auto) 0.1 CBC Comment DIFF FINAL Differential Comment Prothrombin Time 15.8 Prothromb Time International Ratio 1.6 Activated Partial Thromboplast Time 24.6 Blood Urea Nitrogen 27 Creatinine 2.13 Random Glucose 104 Total Protein 6.6 Albumin 3.3 Calcium Level 9.3 Alkaline Phosphatase 115 Aspartate Amino Transf (AST/SGOT) 16 Alanine Aminotransferase (ALT/SGPT) 18 Total Bilirubin 0.7 Sodium Level 138 Potassium Level 3.9 Chloride Level 103 Carbon Dioxide Level 21.6 Anion Gap 13 Estimat Glomerular Filtration Rate 22 Total Creatine Kinase 53 Troponin I LESS THAN 0.02 B-Type Natriuretic Peptide 56 Thyroid Stimulating Hormone 3rd Gen 5.270 Ethyl Alcohol Level LESS THAN 3 Urine Color YELLOW Urine Turbidity HAZY Urine pH 5.5 Urine Specific [place] 1.014 Urine Protein TRACE Urine Glucose (UA) NEG Urine Ketones NEG Urine Occult Blood NEG Urine Nitrite NEG Urine Bilirubin NEG Urine Urobilinogen LESS THAN 2.0 Urine Leukocyte Esterase LARGE Urine WBC 5 Urine Squamous Epithelial Cells 7 Urine Hyaline Casts 20 Urine Mucus FEW Microscopic Urinalysis Comment CATH-CULT NOT IND Urine Opiates Screen NEG Urine Barbiturates Screen NEG Urine Amphetamines Screen NEG Urine Benzodiazepines Screen POS Urine Cocaine Screen NEG Urine Cannabinoids Screen NEG Result Diagram: 03/11/18 1300 03/11/18 1300 Caprini VTE Risk Assessment Caprini VTE Risk Assessment: Mod/High Risk (score >= 2) Caprini Risk Assessment Model Point Value = 1 Point Value = 2 Point Value = 3 Point Value = 5 Age 41-60 Minor surgery BMI > 25 kg/m2 Swollen legs Varicose veins or History of unexplained or recurrent spontaneous Oral contraceptives or hormone replacement Sepsis (< 1 month) Serious lung disease, including pneumonia (< 1 month) Abnormal pulmonary function Acute myocardial infarction Congestive heart failure (< 1 month) History of inflammatory bowel disease Medical patient at bed rest Age 61-74 Arthroscopic surgery Major open surgery (> 45 min) Laparoscopic surgery (> 45 min) Malignancy Confined to bed (> 72 hours) Immobilizing plaster cast Central venous access Age >= 75 History of VTE Family history of VTE Factor V Leiden Prothrombin [id number] Lupus anticoagulant Anticardiolipin antibodies Elevated serum homocysteine Heparin-induced thrombocytopenia Other congenital or acquired thrombophilia Stroke (< 1 month) Elective arthroplasty Hip, pelvis, or leg fracture Acute spinal cord injury (< 1 month) Prophylaxis Regimen Total Risk Factor Score Risk Level Prophylaxis Regimen 0-1 Low Early ambulation 2 Moderate Order ONE of the following: *Sequential Compression Device (SCD) *Heparin 5000 units SQ BID 3-4 Higher Order ONE of the following medications: *Heparin 5000 units SQ TID *Enoxaparin/Lovenox 40 mg SQ daily (WT < 150 kg, CrCl > 30 mL/min) *Enoxaparin/Lovenox 30 mg SQ daily (WT < 150 kg, CrCl > 10-29 mL/min) *Enoxaparin/Lovenox 30 mg SQ BID (WT < 150 kg, CrCl > 30 mL/min) AND/OR *Sequential Compression Device (SCD) 5 or more Highest Order ONE of the following medications: *Heparin 5000 units SQ TID (Preferred with Epidurals) *Enoxaparin/Lovenox 40 mg SQ daily (WT < 150 kg, CrCl > 30 mL/min) *Enoxaparin/Lovenox 30 mg SQ daily (WT < 150 kg, CrCl > 10-29 mL/min) *Enoxaparin/Lovenox 30 mg SQ BID (WT < 150 kg, CrCl > 30 mL/min) AND *Sequential Compression Device (SCD) Assessment and Plan Problem List: (1) Altered mental status ICD Codes: R41.82 - Altered mental status, unspecified Status: Acute Plan: Head CT Chronic changes with moderately severe periventricular and deep white matter tracts small vessel ischemic demyelination. Chronic sinusitis in the right sphenoid. Nothing acute CXR reveals Cardiomegaly. Suspected mild atelectasis or consolidation a the inferior right upper lobe CT chest without contrast ordered UA large amount of leucocytesterase also with squamous epithelium no culture indicated Patient is on Ambien and Tramadol at home, urine toxicology also showed benzodiazepine. Concern that polypharmacy is causing AMS will hold sedating medication IVF for hydration observe overnight (2) Fall ICD Codes: W19.XXXA - Unspecified fall, initial encounter Plan: Pelvis X ray Last Impressions Pelvis X-Ray 03/11/18 1232 Signed Impressions: CONCLUSION: No definite fracture is seen. Head CT 03/11/18 1232 Signed Impressions: CONCLUSION: 1. Chronic changes with moderately severe periventricular and deep white matte r tracts small vessel ischemic demyelination. 2. Chronic sinusitis in the right sphenoid. 3. Nothing acute. Chest X-Ray 03/11/18 1232 Signed Impressions: CONCLUSION: Cardiomegaly. Suspected mild atelectasis or consolidation at the inferior right upper lobe. (3) Acute kidney injury ICD Codes: N17.9 - Acute kidney failure, unspecified Status: Acute Plan: - baseline Creatinine around 1, estimated GFR 55-62 - suspect dehydration due to poor PO intake - IVF - recheck BMP in AM (4) Dehydration ICD Codes: E86.0 - Dehydration Status: Acute Plan: see above (5) Abdominal tenderness ICD Codes: R10.819 - Abdominal tenderness, unspecified site Plan: abd tenderness constipation KUB ordered (6) Hypothyroidism ICD Codes: E03.9 - Hypothyroidism, unspecified Plan: Start synthroid 25 mcg daily (7) Sarcoidosis ICD Codes: D86.9 - Sarcoidosis, unspecified Plan: - Continue home prednisone 2.5 mg daily (8) COPD (chronic obstructive pulmonary disease) ICD Codes: J44.9 - Chronic obstructive pulmonary disease, unspecified Plan: No in acute exacerbation Duonebs as needed Assessment and Plan Patient examined. Assessment and plan formulated with Cierra Subramanian PA-C. I agree with the above. Problem Qualifiers (1) Altered mental status: Qualified Codes: R41.82 - Altered mental status, unspecified Cierra Subramanian March 11, 2018 17:06 Sunny Hernandez DO March 12, 2018 14:24
[2018-03-11] MEDS ORDERED: RESP: ALBUTEROL 2.5 MG/IPRATROPIUM 0.5 MG NEB (PRN) NEB (17:15)
[2018-03-11] MEDS: LEVOTHYROXINE SODIUM 25 MCG TAB PO SCH (17:15)
[2018-03-11] MEDS ORDERED: PILL SPLITTER OTHER PRN (17:45)
[2018-03-11 19:46] VITALS: BP 119/59; PULSE 75; RESP 16; TEMP 97.6; O2SAT 96
--- NOTE | 2018-03-11 20:49 | RADRPT ---
EXAM DATE: 03/11/2018 8:14 PM EDT AGE/SEX: 77 years / Female INDICATIONS: Abnormal cxr; shortness of breath. CLINICAL DATA: This is the patient's initial encounter. Patient reports that signs and symptoms have been present for 1 day and indicates a pain score of 5/10. MEDICAL/SURGICAL HISTORY: Chronic obstructive pulmonary disease. Deep venous thrombosis. Hyperten herman. PE. Cholecystectomy. Hysterectomy. RADIATION DOSE: 19.13 CTDI (mGy) COMPARISON: [facility], CHEST SINGLE AP, 03/11/2018. [facility], CTA CHEST, 04/10/2017. . TECHNIQUE: Multiple contiguous axial images were obtained through the chest without contrast. Image s were obtained in suspended respiration using multiple row detector helical technique. Using automa deanna exposure control and adjustment of the mA and/or kV according to patient size, radiation dose was kept as low as reasonably achievable to obtain optimal diagnostic quality images. FINDINGS: Lungs: No focal areas of consolidation seen. There is some atelectasis in the lateral left lower july g adjacent to the cardiomegaly. There is mild increased ground substances in the upper lungs bilatera lly without focal areas of infiltrate. Mediastinum: Panchamber cardiomegaly occupies most of the inferior left hemithorax. Mitral calcifica tions. No evidence of mediastinal adenopathy. Pleurae: No evidence of focal thickening or pleural effusion. Axillae: Unremarkable. Bony Structures: Unremarkable. Miscellaneous: There is an unusual configuration between the trachea and esophagus at the upper ches t where the esophagus appears to indent and narrow the tracheal airway, best seen on lung window imag e #11. CONCLUSION: 1. Panchamber cardiomegaly causes some atelectasis and volume loss in the left hemithorax. 2. No consolidative infiltrates seen. 3. The upper thoracic esophagus causes an indentation on the posterior margin of the trachea and mil d short segment narrowing of the tracheal diameter. Electronically signed by: Bhupendra Fink MD 03/11/2018 8:47 PM EDT
[2018-03-11] MEDS: SODIUM CHLORIDE 0.9% FLUSH 10 ML FLUSH IV FLUSH SCH (21:00)
--- NOTE | 2018-03-11 22:14 | RADRPT ---
EXAM DATE: 03/11/2018 10:11 PM EDT AGE/SEX: 77 years / Female INDICATIONS: Distention. CLINICAL DATA: This is the patient's initial encounter. Patient reports that signs and symptoms have been present for 1 day and indicates a pain score of Nonresponsive. MEDICAL/SURGICAL HISTORY: Non-responsive. Non-responsive. COMPARISON: No prior [facility] exams available for comparison. FINDINGS: The abdominal bowel gas pattern is normal. No abnormal masses, calcifications, or organomegaly is s een. Visualized lower lungs are clear. Moderate severity degenerative changes in the lumbar spine wit h curvature of the lumbar spine convex towards the right.. CONCLUSION: No gas dilated loops of small or large bowel. Electronically signed by: Bhupendra Fink MD 03/11/2018 10:13 PM EDT
[2018-03-11] MEDS: 1/2 NS + KCL 20 MEQ INJ 1,000 ML IV SCH (23:02)
[2018-03-12] VITALS (8 sets, daily range): BP systolic 112–183; BP diastolic 56–80; PULSE 83–96; RESP 16–20; TEMP 98.1–99.5; O2SAT 92–97
[2018-03-12] MEDS: LEVOTHYROXINE SODIUM 25 MCG TAB PO SCH (06:27)
[2018-03-12 08:07] LABS: AUTOMATED NEUTROPHIL # 6.9 TH/MM3 (1.8-7.7); BASOPHIL # 0.1 TH/MM3 (0-0.2); EOSINOPHIL # 0.5 TH/MM3 (0-0.4); EOSINOPHIL % 4.4 % (0.0-4.0); HEMATOCRIT 30.2 % (35.0-46.0); HEMOGLOBIN 9.5 GM/DL (11.6-15.3); LYMPH % 19.7 % (9.0-44.0); MEAN CELL VOLUME 77.2 FL (80.0-100.0); MEAN CORPUSCULAR HEMOGLOBIN 24.3 PG (27.0-34.0); MEAN CORPUSCULAR HGB CONC 31.5 % (32.0-36.0); MEAN PLATELET VOLUME 8.1 FL (7.0-11.0); MONOCYTE # 0.8 TH/MM3 (0-0.9); NEUT % 66.9 % (16.0-70.0); PLATELET COUNT 350 TH/MM3 (150-450); RED BLOOD COUNT 3.92 MIL/MM3 (4.00-5.30); RED CELL DISTRIBUTION WIDTH 17.5 % (11.6-17.2); WHITE BLOOD COUNT 10.3 TH/MM3 (4.0-11.0)
[2018-03-12 08:32] LABS: BICARBONATE 22.7 MEQ/L (21.0-32.0); CALCIUM 9.2 MG/DL (8.5-10.1); CREATININE 2.38 MG/DL (0.50-1.00)
[2018-03-12] MEDS: SODIUM CHLORIDE 0.9% FLUSH 10 ML FLUSH IV FLUSH SCH ×2 (09:01→20:21)
[2018-03-12] MEDS: PANTOPRAZOLE SOD 20 MG DELAYED RELEASE TAB PO SCH (09:01)
[2018-03-12] MEDS: predniSONE 5 MG TAB PO SCH (09:01)
[2018-03-12] MEDS: DILTIAZEM-CD 240 MG CAP ER PO SCH (09:01)
[2018-03-12] MEDS: 1/2 NS + KCL 20 MEQ INJ 1,000 ML IV SCH (09:01)
[2018-03-12] MEDS: METHYLPHENIDATE HCL 10 MG TAB PO SCH (09:39)
--- NOTE | 2018-03-12 11:52 | HHI.PR ---
Subjective Remarks Patient appears more awake and alert today. Patient dixon to provide name, date and location appropriately Per RN continues to have periods of confusion Objective Vitals Vital Signs Date Time Temp Pulse Resp B/P (MAP) Pulse Ox O2 Delivery O2 Flow Rate FiO2 03/12/18 11:33 98.1 90 19 133/60 (84) 92 03/12/18 08:15 98.2 83 20 182/78 (112) 95 03/12/18 07:49 96 21 03/12/18 04:00 98.4 88 20 125/66 (85) 93 03/12/18 00:00 98.3 87 20 112/56 (74) 97 03/11/18 19:46 97.6 75 16 119/59 (79) 96 03/11/18 18:58 03/11/18 16:39 74 19 132/69 (90) 98 Nasal Cannula 2.00 03/11/18 12:48 98 03/11/18 12:13 97.7 78 15 119/60 (79) 98 Result Diagram: 03/12/18 0641 03/12/18 0641 Other Results Laboratory Tests Test 03/11/18 13:00 03/11/18 14:15 03/12/18 06:41 White Blood Count 12.5 TH/MM3 10.3 TH/MM3 Red Blood Count 4.07 MIL/MM3 3.92 MIL/MM3 Hemoglobin 9.7 GM/DL 9.5 GM/DL Hematocrit 31.7 % 30.2 % Mean Corpuscular Volume 77.9 FL 77.2 FL Mean Corpuscular Hemoglobin 23.9 PG 24.3 PG Mean Corpuscular Hemoglobin Concent 30.7 % 31.5 % Red Cell Distribution Width 17.7 % 17.5 % Platelet Count 394 TH/MM3 350 TH/MM3 Mean Platelet Volume 8.2 FL 8.1 FL Neutrophils (%) (Auto) 77.8 % 66.9 % Lymphocytes (%) (Auto) 11.1 % 19.7 % Monocytes (%) (Auto) 9.7 % 8.0 % Eosinophils (%) (Auto) 0.8 % 4.4 % Basophils (%) (Auto) 0.6 % 1.0 % Neutrophils # (Auto) 9.8 TH/MM3 6.9 TH/MM3 Lymphocytes # (Auto) 1.4 TH/MM3 2.0 TH/MM3 Monocytes # (Auto) 1.2 TH/MM3 0.8 TH/MM3 Eosinophils # (Auto) 0.1 TH/MM3 0.5 TH/MM3 Basophils # (Auto) 0.1 TH/MM3 0.1 TH/MM3 CBC Comment DIFF FINAL DIFF FINAL Differential Comment Prothrombin Time 15.8 SEC Prothromb Time International Ratio 1.6 RATIO Activated Partial Thromboplast Time 24.6 SEC Blood Urea Nitrogen 27 MG/DL 36 MG/DL Creatinine 2.13 MG/DL 2.38 MG/DL Random Glucose 104 MG/DL 89 MG/DL Total Protein 6.6 GM/DL Albumin 3.3 GM/DL Calcium Level 9.3 MG/DL 9.2 MG/DL Alkaline Phosphatase 115 U/L Aspartate Amino Transf (AST/SGOT) 16 U/L Alanine Aminotransferase (ALT/SGPT) 18 U/L Total Bilirubin 0.7 MG/DL Sodium Level 138 MEQ/L 138 MEQ/L Potassium Level 3.9 MEQ/L 4.3 MEQ/L Chloride Level 103 MEQ/L 105 MEQ/L Carbon Dioxide Level 21.6 MEQ/L 22.7 MEQ/L Anion Gap 13 MEQ/L 10 MEQ/L Estimat Glomerular Filtration Rate 22 ML/MIN 20 ML/MIN Total Creatine Kinase 53 U/L Troponin I LESS THAN 0.02 NG/ML B-Type Natriuretic Peptide 56 PG/ML Thyroid Stimulating Hormone 3rd Gen 5.270 uIU/ML Ethyl Alcohol Level LESS THAN 3 MG/DL Urine Color YELLOW Urine Turbidity HAZY Urine pH 5.5 Urine Specific [place] 1.014 Urine Protein TRACE mg/dL Urine Glucose (UA) NEG mg/dL Urine Ketones NEG mg/dL Urine Occult Blood NEG Urine Nitrite NEG Urine Bilirubin NEG Urine Urobilinogen LESS THAN 2.0 MG/DL Urine Leukocyte Esterase LARGE Urine WBC 5 /hpf Urine Squamous Epithelial Cells 7 /hpf Urine Hyaline Casts 20 /lpf Urine Mucus FEW /lpf Microscopic Urinalysis Comment CATH-CULT NOT IND Urine Opiates Screen NEG Urine Barbiturates Screen NEG Urine Amphetamines Screen NEG Urine Benzodiazepines Screen POS Urine Cocaine Screen NEG Urine Cannabinoids Screen NEG Free Thyroxine 1.39 NG/DL Imaging Last Impressions Pelvis X-Ray 03/11/18 1232 Signed Impressions: CONCLUSION: No definite fracture is seen. Head CT 03/11/18 1232 Signed Impressions: CONCLUSION: 1. Chronic changes with moderately severe periventricular and deep white matte r tracts small vessel ischemic demyelination. 2. Chronic sinusitis in the right sphenoid. 3. Nothing acute. Chest X-Ray 03/11/18 123 Signed Impressions: CONCLUSION: Cardiomegaly. Suspected mild atelectasis or consolidation at the inferior right upper lobe. Chest CT 03/11/18 0000 Signed Impressions: CONCLUSION: 1. Panchamber cardiomegaly causes some atelectasis and volume loss in the left hemithorax. 2. No consolidative infiltrates seen. 3. The upper thoracic esophagus causes an indentation on the posterior margin of the trachea and mild short segment narrowing of the tracheal diameter. Abdomen X-Ray 03/11/18 0000 Signed Impressions: CONCLUSION: No gas dilated loops of small or large bowel. Objective Remarks GENERAL: This is a well-nourished, well-developed patient, in no apparent distress. CARDIOVASCULAR: Regular rate and rhythm RESPIRATORY: Clear to auscultation. Breath sounds equal bilaterally. GASTROINTESTINAL: Abdomen soft, non-tender, nondistended. Normal active bowel sounds MUSCULOSKELETAL: Extremities without clubbing, cyanosis, or edema. NEURO: awake and alert with periods of confusion. Moves all ext x4 A/P Problem List: (1) Altered mental status ICD Codes: R41.82 - Altered mental status, unspecified Status: Acute Plan: Head CT Chronic changes with moderately severe periventricular and deep white matter tracts small vessel ischemic demyelination. Chronic sinusitis in the right sphenoid. Nothing acute CXR reveals Cardiomegaly. Suspected mild atelectasis or consolidation a the inferior right upper lobe CT chest without contrast ordered UA large amount of leucocyte esterase also with squamous epithelium no culture indicated Patient is on Ambien and Tramadol at home, urine toxicology also showed benzodiazepine. Concern that polypharmacy is causing AMS will hold sedating medication IVF for hydration (2) Fall ICD Codes: W19.XXXA - Unspecified fall, initial encounter Plan: Pelvis X ray Last Impressions Pelvis X-Ray 03/11/18 123 Signed Impressions: CONCLUSION: No definite fracture is seen. Head CT 03/11/18 123 Signed Impressions: CONCLUSION: 1. Chronic changes with moderately severe periventricular and deep white matte r tracts small vessel ischemic demyelination. 2. Chronic sinusitis in the right sphenoid. 3. Nothing acute. Chest X-Ray 03/11/18 1232 Signed Impressions: CONCLUSION: Cardiomegaly. Suspected mild atelectasis or consolidation at the inferior right upper lobe. (3) Acute kidney injury ICD Codes: N17.9 - Acute kidney failure, unspecified Status: Acute Plan: - baseline Creatinine around 1, estimated GFR 55-62 - suspect dehydration due to poor PO intake - recheck BMP shows BUN 36, creatinine 2.38, GFR 20 - increase IVF rate - renal US ordered - recheck BMP in AM (4) Dehydration ICD Codes: E86.0 - Dehydration Status: Acute Plan: see above (5) Abdominal tenderness ICD Codes: R10.819 - Abdominal tenderness, unspecified site Plan: abd tenderness constipation KUB revealed: no gas dilated loops of small or large bowel (6) Hypothyroidism ICD Codes: E03.9 - Hypothyroidism, unspecified Plan: Start synthroid 25 mcg daily (7) Sarcoidosis ICD Codes: D86.9 - Sarcoidosis, unspecified Plan: - Continue home prednisone 2.5 mg daily (8) COPD (chronic obstructive pulmonary disease) ICD Codes: J44.9 - Chronic obstructive pulmonary disease, unspecified Plan: No in acute exacerbation Duonebs as needed Assessment and Plan Patient examined. Assessment and plan formulated with Cierra Subramanian PA-C. I agree with the above. Pt more alert today. Pt has h/o bipolar disorder. Baseline dementia? Will review outpt records. Pt more alert today. Anticipate d/c in next 1-2 days. Problem Qualifiers (1) Altered mental status: Qualified Codes: R41.82 - Altered mental status, unspecified Cierra Subramanian March 12, 2018 11:52 Sunny Hernandez DO March 12, 2018 14:28
--- NOTE | 2018-03-12 21:47 | RADRPT ---
EXAM DATE: 03/12/2018 9:17 PM EDT AGE/SEX: 77 years / Female INDICATIONS: Increased BUN/Creatinine. CLINICAL DATA: This is the patient's initial encounter. Patient reports that signs and symptoms have been present for 1 month and indicates a pain score of 5/10. MEDICAL/SURGICAL HISTORY: Chronic obstructive pulmonary disease. Hypertension. Gastroesophage al reflux disease. Cerebrovascular accident. Asthma. Anticoagulant therapy. Tuberculosis. Sarcoidosi s. Schizophrenia. Abdominoplasty. Bladder sling. Tonsillectomy. Cholecystectomy. Hysterectomy. COMPARISON: No prior [place] exams available for comparison. MEASUREMENTS: Right Kidney:__11.0 x 5.2 x 6.3 cm cm Left Kidney:__10.5 x 4.5 x 5.1 cm cm FINDINGS: Right Kidney: The right kidney is normal in size with mild cortical atrophy and increased echogenicit y. There is a large cyst extending off the lower pole measuring up to 7.3 x 6.6 cm. Left Kidney: The left kidney is normal in size with mild cortical atrophy and increased echogenicity. There is a 2.3 x 3.1 cm cyst in the lower pole. Bladder: Within normal limits given the degree of distension. CONCLUSION: 1. No evidence of hydronephrosis. 2. Increased echogenicity of the kidneys are characteristic of medical renal disease. 3. Bilateral simple cysts. Electronically signed by: Vasu Irene MD 03/12/2018 9:46 PM EDT
[2018-03-13 04:08] VITALS: BP 174/75; PULSE 86; RESP 18; TEMP 98.2; O2SAT 95
[2018-03-13] MEDS: LEVOTHYROXINE SODIUM 25 MCG TAB PO SCH (05:14)
[2018-03-13 07:41] VITALS: BP 182/81; PULSE 85; RESP 20; TEMP 98.1; O2SAT 95
--- NOTE | 2018-03-13 08:21 | EKG ---
Date Performed: 03/11/2018 Time Performed: 17:42:28 PTAGE: 77 years EKG: Sinus rhythm MARKED LEFT AXIS DEVIATION MODERATE VOLTAGE CRITERIA FOR LVH, CONSIDER NORMAL VARIANT ABNORMAL ECG I NTERPRETATION BASED ON A DEFAULT AGE OF 40 YEARS NO PREVIOUS TRACING DOCTOR: Erwin Mirza Interpretating Date/Time 03/13/2018 08:15:19
--- NOTE | 2018-03-13 08:29 | EKG ---
Date Performed: 03/11/2018 Time Performed: 13:16:16 PTAGE: 77 years EKG: Sinus rhythm MARKED LEFT AXIS DEVIATION MODERATE VOLTAGE CRITERIA FOR LVH, CONSIDER NORMAL VARIANT ABNORMAL ECG I NTERPRETATION BASED ON A DEFAULT AGE OF 40 YEARS NO PREVIOUS TRACING DOCTOR: Erwin Mirza Interpretating Date/Time 03/13/2018 08:18:46
[2018-03-13] MEDS: predniSONE 5 MG TAB PO SCH (09:15)
[2018-03-13] MEDS: PANTOPRAZOLE SOD 20 MG DELAYED RELEASE TAB PO SCH (09:15)
[2018-03-13] MEDS: DILTIAZEM-CD 240 MG CAP ER PO SCH (09:15)
[2018-03-13] MEDS: SODIUM CHLORIDE 0.9% FLUSH 10 ML FLUSH IV FLUSH SCH (09:16)
[2018-03-13] MEDS: METHYLPHENIDATE HCL 10 MG TAB PO SCH (09:16)
[2018-03-13] MEDS ORDERED: cloNIDine HCL 0.1 MG TAB PO PRN (09:30)
[2018-03-13] MEDS ORDERED: WALKER WHEELS/F1 MIS (09:33)
--- NOTE | 2018-03-13 09:34 | HHI.DCPOC ---
Discharge Care Plan Diagnosis: (1) Dehydration (2) Altered mental status (3) Acute kidney injury (4) Fall (5) Unsteady gait Goals to Promote Your Health * To prevent worsening of your condition and complications * To maintain your health at the optimal level Directions to Meet Your Goals Take your medications as prescribed Follow your dietary instruction Follow activity as directed Keep your appointments as scheduled Take your immunizations and boosters as scheduled If your symptoms worsen call your PCP, if no PCP go to Urgent Care Center or Emergency Room Smoking is Dangerous to Your Health. Avoid second hand smoke Call the 24-hour hour crisis hotline for domestic abuse at Cierra Subramanian March 13, 2018 09:34 Sunny Hernandez DO March 13, 2018 13:30
--- NOTE | 2018-03-13 09:42 | HHI.DS ---
Discharge Summary Admission Date March 11, 2018 at 17:01 Discharge Date: March 13, 2018 Admitting Diagnosis AMS, dehydration and BERNADETTE (1) Altered mental status Diagnosis: Principal ICD Codes: R41.82 - Altered mental status, unspecified Status: Acute (2) Fall Diagnosis: Principal ICD Codes: W19.XXXA - Unspecified fall, initial encounter (3) Acute kidney injury Diagnosis: Principal ICD Codes: N17.9 - Acute kidney failure, unspecified Status: Acute (4) Dehydration Diagnosis: Principal ICD Codes: E86.0 - Dehydration Status: Acute (5) Abdominal tenderness Diagnosis: Principal ICD Codes: R10.819 - Abdominal tenderness, unspecified site (6) Hypothyroidism Diagnosis: Secondary ICD Codes: E03.9 - Hypothyroidism, unspecified (7) Sarcoidosis Diagnosis: Secondary ICD Codes: D86.9 - Sarcoidosis, unspecified (8) COPD (chronic obstructive pulmonary disease) Diagnosis: Principal ICD Codes: J44.9 - Chronic obstructive pulmonary disease, unspecified Consultants None Procedures None Brief History This is a 77-year-old female patient with past medical history which includes ADD, anxiety, asthma, CPPD, bipolar, chronic kidney disease stage III, gastroparesis, GERD, hyperlipidemia, hypertension, COPD, migraines and sarcoidosis. Patient presents the emergency department brought in by EMS after a fall. Initial systolic blood pressures in the 80s. Patient awakens to voice. Patient appears confused and seems to be a poor historian. Information gathered from patient and prior charting. Per ER documentation: Patient states that a dog pushed on her and she fell. Patient denies loss of consciousness. Patient denies any headache or neck pain. Patient denies any chest pain or shortness of breath. Patient denies abdominal pain. Patient denies any focal weakness or numbness of extremity. EMS was called. Initial systolic blood pressures in the 80s. Patient was given IV fluid normal saline solution and transported to ED for evaluation. Patient denies any complaint now. Patient has history of osteoarthritis, anxiety, depression, sarcoidosis, migraine headache. Patient was on diazepam and Lortab and Xanax until recently when patient is on Xanax now. Patient denies pain, SOB, chest pain, fevers or chills. CBC/BMP: 03/12/18 0641 03/12/18 0641 Significant Findings Laboratory Tests Test 03/11/18 13:00 03/11/18 14:15 03/12/18 06:41 White Blood Count 12.5 TH/MM3 (4.0-11.0) Hemoglobin 9.7 GM/DL (11.6-15.3) 9.5 GM/DL (11.6-15.3) Hematocrit 31.7 % (35.0-46.0) 30.2 % (35.0-46.0) Mean Corpuscular Volume 77.9 FL (80.0-100.0) 77.2 FL (80.0-100.0) Mean Corpuscular Hemoglobin 23.9 PG (27.0-34.0) 24.3 PG (27.0-34.0) Mean Corpuscular Hemoglobin Concent 30.7 % (32.0-36.0) 31.5 % (32.0-36.0) Red Cell Distribution Width 17.7 % (11.6-17.2) 17.5 % (11.6-17.2) Neutrophils (%) (Auto) 77.8 % (16.0-70.0) Monocytes (%) (Auto) 9.7 % (0.0-8.0) Neutrophils # (Auto) 9.8 TH/MM3 (1.8-7.7) Monocytes # (Auto) 1.2 TH/MM3 (0-0.9) Prothrombin Time 15.8 SEC (9.8-11.6) Blood Urea Nitrogen 27 MG/DL (7-18) 36 MG/DL (7-18) Creatinine 2.13 MG/DL (0.50-1.00) 2.38 MG/DL (0.50-1.00) Albumin 3.3 GM/DL (3.4-5.0) Estimat Glomerular Filtration Rate 22 ML/MIN (>89) 20 ML/MIN (>89) Troponin I LESS THAN 0.02 NG/ML Thyroid Stimulating Hormone 3rd Gen 5.270 uIU/ML (0.358-3.740) Urine Turbidity HAZY (CLEAR) Urine Leukocyte Esterase LARGE (NEG) Urine Mucus FEW /lpf (OCC) Urine Benzodiazepines Screen POS (NEG) Red Blood Count 3.92 MIL/MM3 (4.00-5.30) Eosinophils (%) (Auto) 4.4 % (0.0-4.0) Eosinophils # (Auto) 0.5 TH/MM3 (0-0.4) Imaging Last Impressions Renal Ultrasound 03/12/18 Signed Impressions: CONCLUSION: 1. No evidence of hydronephrosis. 2. Increased echogenicity of the kidneys are characteristic of medical renal d isease. 3. Bilateral simple cysts. Pelvis X-Ray 03/11/181231 Signed Impressions: CONCLUSION: No definite fracture is seen. Head CT 03/11/181231 Signed Impressions: CONCLUSION: 1. Chronic changes with moderately severe periventricular and deep white matte r tracts small vessel ischemic demyelination. 2. Chronic sinusitis in the right sphenoid. 3. Nothing acute. Chest X-Ray 03/11/181231 Signed Impressions: CONCLUSION: Cardiomegaly. Suspected mild atelectasis or consolidation at the inferior right upper lobe. Chest CT 03/11/18 Signed Impressions: CONCLUSION: 1. Panchamber cardiomegaly causes some atelectasis and volume loss in the left hemithorax. 2. No consolidative infiltrates seen. 3. The upper thoracic esophagus causes an indentation on the posterior margin of the trachea and mild short segment narrowing of the tracheal diameter. Abdomen X-Ray 03/11/18 Signed Impressions: CONCLUSION: No gas dilated loops of small or large bowel. PE at Discharge GENERAL: This is a well-nourished, well-developed patient, in no apparent distress. SKIN: new skin tear 2 inch by 2 inch left upper arm CARDIOVASCULAR: Regular rate and rhythm RESPIRATORY: Clear to auscultation. Breath sounds equal bilaterally. GASTROINTESTINAL: Abdomen soft, non-tender, nondistended. Normal active bowel sounds MUSCULOSKELETAL: Extremities without clubbing, cyanosis, or edema. NEURO: awake and alert with periods of confusion. Moves all ext x4 Hospital Course Altered mental status - Head CT Chronic changes with moderately severe periventricular and deep white matter tracts small vessel ischemic demyelination. Chronic sinusitis in the right sphenoid. Nothing acute - CXR reveals Cardiomegaly. Suspected mild atelectasis or consolidation a the inferior right upper lobe - CT chest without contrast ordered - UA large amount of leucocyte esterase also with squamous epithelium no culture indicated - Patient is on Ambien and Tramadol at home, urine toxicology also showed benzodiazepine. Concern that polypharmacy is causing AMS will hold sedating medication - IVF for hydration - Patients's mental status has improves greatly but she continues to have some difficult concerned for dementia. This was explained to patient and her . Patient to follow up with PCP. - In talking with the patient's she has been increasingly more forgetful over the past year, has had decreasing appetite over the past few months and has been having difficult with ambulation for the past 4-6 months. Patient's does most of the cooking and shopping as the patient is unable due to her mental status. - Dr. Hernandez discussed the case with patient's PCP Dr. Layton Fall - Pelvis X ray reviewed No definite fracture is seen Acute kidney injury - baseline Creatinine around 1, estimated GFR 55-62 - suspect dehydration due to poor PO intake - recheck BMP shows BUN 36, creatinine 2.38, GFR 20 - BMP (03/13) BUN 18, creatinine 1.07, estimated GFR 50 - increase IVF rate - renal US ordered - recheck BMP in 1 week with results to PCP Dehydration - see above Abdominal tenderness - KUB revealed: no gas dilated loops of small or large bowel Hypothyroidism - TSH 5.27 with free T4 1.39 - repeat TSH with reflex T4 in one week with results to PCP Sarcoidosis - Continue home prednisone 2.5 mg daily COPD (chronic obstructive pulmonary disease) No in acute exacerbation Duonebs as needed Skin tear - [facility] for dressing changes and wound care Pt Condition on Discharge: Stable Discharge Disposition: Disch w/ Home Health Serv Discharge Instructions DIET: Follow Instructions for: As Tolerated, No Restrictions Activities you can perform: Regular-No Restrictions Other Activity Instructions: Patient requires supervision at all times New Orders: BASIC METABOLIC PROF - 1 Week TSH WITH REFLEX FREE T4 - 1 Week New Medications: Walker with Front Wheels (Walker with Front Wheels) 1 Mis Mis EA .XX DIRECTED, #1 0 Refills Continued Medications: Albuterol 18 GM Inh (Ventolin Hfa 18 GM Inh) 90 Mcg/Act Aer 2 PUFF INH Q4-6H PRN for SHORTNESS OF BREATH, #1 INHALER 0 Refills Diltiazem CD 24 HR (Cardizem CD 24 HR) 240 Mg Caper 240 MG PO DAILY, #30 CAP 0 Refills Methylphenidate IR (Ritalin IR) 20 Mg Tab 20 MG PO DAILY, #30 TAB 0 Refills Omeprazole (Omeprazole) 20 Mg Tab 20 MG PO DAILY, #30 TAB 0 Refills Prednisone (Prednisone) 2.5 Mg Tab 2.5 MG PO DAILY, TAB 0 Refills Discontinued Medications: Furosemide (Lasix) 40 Mg Tab 40 MG PO DAILY, #30 TAB 0 Refills Lactulose Liq (Lactulose Liq) 10 Gm/15 Ml Soln 30 ML PO Q6H, ML 0 Refills Potassium Chloride ER (K-Tab) 20 Meq Tab 20 MEQ PO DAILY for Electrolyte Replacement, #30 TAB 0 Refills Tramadol (Tramadol) 50 Mg Tab 50-100 MG PO TID PRN for PAIN, TAB 0 Refills Zolpidem (Ambien) 10 Mg Tab 10 MG PO HS PRN for INSOMNIA, TAB 0 Refills Additional Information Patient examined. Assessment and plan formulated with Cierra Subramanian PA-C. I agree with the above. Pt with h/o bipolar disorder. Pt also with obvious dementia. I feel narcotics are contributing to polypharmacy and sedation. Pt was focused on narcotics today. Pt discharged to home with [facility] and Home PT, home social professionals. Case d/w pt's PCP, Dr. Cheri Layton. Pt to f/u with Dr. Layton in 1 week. See discharge orders. Cierra Subramanian March 13, 2018 09:42 Sunny Hernandez DO March 13, 2018 13:33
--- NOTE | 2018-03-13 09:44 | HHI.FF ---
Face to Face Verification Diagnosis: (1) Dehydration (2) Altered mental status (3) Acute kidney injury (4) Fall (5) Unsteady gait Physical Therapy Order: Evaluate and Treat Occupational Therapy Order: Evaluate and Treat Home Health Nursing Order: Medical education Signs/symptoms of disease process Medication education-adverse effect Wound care and dressing changes Nursing assessment with vital signs Instructions: Please draw BMP, TSH and T4 in 1 week with results to PCP [employer] Order: To Evaluate: Living conditions/environment, Support services Order: To Provide: Long range planning, Community services I have seen patient Caterina Cordova on 03/13/18. My clinical findings support the need for the requested home health care services because: Ltd mobility - disease progression Limited ability to care for self Impaired cognition/judgement I certify that my clinical findings support that this patient is homebound because: Impaired cognitive ability/safety Unsteady gait/balance Unsafe to leave home unassisted Cierra Subramanian March 13, 2018 09:44 Sunny Hernandez DO March 13, 2018 09:54
[2018-03-13 12:18] LABS: INTERNATIONAL NORMALIZED RATIO 1.4 RATIO; PROTHROMBIN TIME - PATIENT 14.4 SEC (9.8-11.6)
[2018-03-13 12:30] LABS: CALCIUM 9.5 MG/DL (8.5-10.1); CREATININE 1.07 MG/DL (0.50-1.00)
[2018-03-13 12:53] VITALS: BP 174/86; PULSE 90; RESP 18; TEMP 98.4; O2SAT 97
[2018-03-13 15:41] VITALS: BP 141/65; PULSE 76; RESP 18; TEMP 97.5; O2SAT 95
== END 2018-03-13 19:12 | disposition home or self-care (01) ==
LOC: NEPC 11:53 → NEDA 17:01 → NEPFCDU 18:49
PROVIDERS: ADMIT Hospitalist; ATTEND Hospitalist
DX: Z04.3 Encounter for examination and observation following other accident (principal); W01.0XXA Fall on same level from slipping, tripping and stumbling without subsequent striking against object, initial encounter; D86.9 Sarcoidosis, unspecified; M19.90 Unspecified osteoarthritis, unspecified site; G43.909 Migraine, unspecified, not intractable, without status migrainosus; F41.9 Anxiety disorder, unspecified; F32.9 Major depressive disorder, single episode, unspecified; Z79.01 Long term (current) use of anticoagulants; Z85.828 Personal history of other malignant neoplasm of skin; Z86.73 Personal history of transient ischemic attack (TIA), and cerebral infarction without residual deficits; K21.9 Gastro-esophageal reflux disease without esophagitis; I10 Essential (primary) hypertension; Z79.899 Other long term (current) drug therapy; J32.9 Chronic sinusitis, unspecified; G37.9 Demyelinating disease of central nervous system, unspecified; I51.7 Cardiomegaly; J44.9 Chronic obstructive pulmonary disease, unspecified; R06.02 Shortness of breath; I82.409 Acute embolism and thrombosis of unspecified deep veins of unspecified lower extremity; J98.11 Atelectasis; R94.31 Abnormal electrocardiogram [ECG] [EKG]; R41.0 Disorientation, unspecified
CPT/HCPCS: 70450; 71045; 71250; 72170; 74018; 76775; 80048; 80053; 80307; 81001; 82550; 83880; 84439; 84443; 84484; 85025; 85610; 85730; 93005; 94664; 96360; 96361; 97162; 99285; G0378; G8987; G8988; J7030; J7512